=== PATIENT | female | born 1950 | race Caucasian/White ===

== ENCOUNTER 2022-06-06 19:41 | Emergency (ER) | payer OTHER ==
[~2022-06-06] VITALS: Ht 157.5 cm; Wt 74.4 kg
[2022-06-06 20:02] VITALS: BP_SYST 148
--- NOTE | 2022-06-06 22:15 | NUR ---
Patient to ER bed HB1 to gown for evaluation. Side rails up.
--- NOTE | 2022-06-06 22:24 | NUR ---
ER Dr. Pollard at bedside examining patient.
--- NOTE | 2022-06-06 22:32 | NUR ---
PT FROM HOME WITH C/O OF RIGHT HAND PAIN SINCE THRUSDAY AFTER PT HAD MECH TRIP AND FALL ON WALK. FALL WAS WITNESSED, PT HIT HEAD/FACE AND K.O. PT ARRIVED WITH SWELLING AND BRUISING TO THE TOP OF HAND AND PALM. PT WITH LIMITED ROM IN HAND. DAUGHTER AT BEDSIDE.
--- NOTE | 2022-06-06 23:01 | NUR ---
WHEN ASKED, PT DENIED THE NEED FOR PAIN MEDICATION.
[2022-06-06 23:22] VITALS: BP_SYST 148
--- NOTE | 2022-06-06 23:22 | NUR ---
Patient given written and verbal discharge instructions and verbalizes understanding. ER DR. BECKWITH discussed with patient the results and treatment provided. Patient in stable condition. ID arm band removed. Patient educated on pain management and to follow up with PMD. Pain Scale 0. Opportunity for questions provided and answered. Medication side effect fact sheet provided.
== END 2022-06-06 23:22 | disposition home or self-care (01) ==
LOC: SED 19:41
DX: S62.511A Displaced fracture of proximal phalanx of right thumb, initial encounter for closed fracture (principal); I10 Essential (primary) hypertension; Z88.5 Allergy status to narcotic agent; Z79.899 Other long term (current) drug therapy; W01.0XXA Fall on same level from slipping, tripping and stumbling without subsequent striking against object, initial encounter; Y93.89 Activity, other specified; Y92.89 Other specified places as the place of occurrence of the external cause; Y99.8 Other external cause status
CPT/HCPCS: 99283